=== PATIENT | female | born 1965 | race Caucasian/White ===

== ENCOUNTER 2019-03-11 23:03 | Emergency (ER) | payer BC ==
[~2019-03-11] VITALS: Ht 170.2 cm; Wt 65.8 kg
--- NOTE | 2019-03-11 23:53 | NUR ---
PT CAME TO ER BED 9 WITH FRIEND C/O ABDOMINAL PAIN. PT STATES THAT THE ABDOMINAL PAIN ANTONIO AND CAUSES BOTH OF HER ARMS TO TINGLE. AAOX4. NO SOB. BREATHING EVENLY AND UNLABORED. NOT IN ANY DISTRESS. DENIES PAIN UPON URINATION. CONNECTED TO THE EXEC[employer].
[2019-03-12] MEDS ORDERED: IV NS 0.9% 500 ML BAG IV ONE
[2019-03-12] MEDS ORDERED: ONDANSETRON HCL/PF 4 MG/2 ML VIAL IVP ONE
[2019-03-12 00:15] LABS: BASOPHILS % (AUTO) 0.3 % (0.0-2.0); EOSINOPHILS % (AUTO) 1.3 % (0.0-6.0); HEMATOCRIT 36 % (33-45); HEMOGLOBIN 12.4 g/dL (11.5-14.8); LYMPHOCYTES # (AUTO) 0.8 /CMM (0.8-4.8); LYMPHOCYTES % (AUTO) 7.6 % (20.0-44.0); MEAN CORPUSCULAR HGB CONC 34 g/dl (31.0-36.0); MEAN CORPUSCULAR VOLUME 91 fL (82-100); MONOCYTES # (AUTO) 0.5 /CMM (0.1-1.30); MONOCYTES % (AUTO) 4.7 % (2.0-12.0); NEUTROPHILS # (AUTO) 9.6 /CMM (1.8-8.9); NEUTROPHILS % (AUTO) 86.1 % (43.0-81.0); PLATELET COUNT (AUTO) 303 /CMM (150-450); RED BLOOD CELL COUNT(AUTO) 4.01 MIL/uL (4.0-5.2); WHITE BLOOD COUNT (AUTO) 11.1 K/uL (4.3-11.0)
[2019-03-12 00:28] LABS: ALBUMIN 3.7 g/dL (3.4-5.0); BILIRUBIN,DIRECT 0.1 mg/dL (0.0-0.2); BILIRUBIN,TOTAL 0.3 mg/dL (0.2-1.0); CALCIUM, SERUM 8.9 mg/dL (8.5-10.1); CREATININE 0.8 mg/dL (0.6-1.3); POTASSIUM 3.3 mmol/L (3.5-5.1); TOTAL PROTEIN, SERUM 7.4 g/dL (6.4-8.2)
--- NOTE | 2019-03-12 01:13 | NUR ---
patient sent to ct
--- NOTE | 2019-03-12 02:39 | NUR ---
ROSA CALLED FOR CT RESULT.
[2019-03-12 04:23] VITALS: BP 127/75
== END 2019-03-12 04:24 | disposition home or self-care (01) ==
LOC: ER 23:06
DX: R10.13 Epigastric pain (principal); M81.0 Age-related osteoporosis without current pathological fracture; M06.9 Rheumatoid arthritis, unspecified; Z88.8 Allergy status to other drugs, medicaments and biological substances; Z85.038 Personal history of other malignant neoplasm of large intestine
CPT/HCPCS: 36415; 71250; 74176; 80048; 80076; 83690; 85025; 99284; J7040